=== PATIENT | female | born 1975 | race Caucasian/White ===

== ENCOUNTER → 2023-11-24 18:02 | Outpatient (REF) | payer OTHER, SELFPAY | LOC: RAD 18:02 | PROVIDERS: ATTENDING PHYSICIAN Family Medicine | DX: M54.9 Dorsalgia, unspecified (principal); R07.81 Pleurodynia | CPT/HCPCS: 71101; 72072; 72110 ==

== ENCOUNTER → 2023-12-30 17:25 | Outpatient (REF) | payer OTHER, SELFPAY | LOC: RAD 17:25 | PROVIDERS: ATTENDING PHYSICIAN Family Medicine | DX: S22.42XS Multiple fractures of ribs, left side, sequela (principal) | CPT/HCPCS: 71250 ==

== ENCOUNTER → 2024-01-01 16:20 | Outpatient (REF) | payer OTHER, SELFPAY | LOC: WDC 16:20 | PROVIDERS: ATTENDING PHYSICIAN Nurse Practitioner Family; FAMILY PHYSICIAN Family Medicine | DX: Z12.31 Encounter for screening mammogram for malignant neoplasm of breast (principal) | CPT/HCPCS: 77063; 77067 ==

== ENCOUNTER → 2024-02-02 10:24 | Outpatient (REF) | payer OTHER, SELFPAY | LOC: RAD 10:24 | PROVIDERS: ATTENDING PHYSICIAN Family Medicine | DX: S22.32XS Fracture of one rib, left side, sequela (principal); Z85.831 Personal history of malignant neoplasm of soft tissue | CPT/HCPCS: 78306; A9503 ==

== ENCOUNTER → 2025-02-07 17:02 | Outpatient (REF) | payer BC, SELFPAY | LOC: WDC 17:02 | PROVIDERS: ATTENDING PHYSICIAN Obstetrics & Gynecology; FAMILY PHYSICIAN Family Medicine | DX: Z12.31 Encounter for screening mammogram for malignant neoplasm of breast (principal) | CPT/HCPCS: 77063; 77067 ==